=== PATIENT | female | born 1950 | race Caucasian/White ===

== ENCOUNTER → 2021-06-24 | Outpatient (CLI) | payer OTHER | LOC: KOH-I 13:45 | DX: R22.1 Localized swelling, mass and lump, neck (principal); M27.8 Other specified diseases of jaws | CPT/HCPCS: 76536 ==

== ENCOUNTER → 2021-09-04 | Outpatient (CLI) | payer OTHER | LOC: US 08:58 | DX: D37.030 Neoplasm of uncertain behavior of the parotid salivary glands (principal) ==

== ENCOUNTER → 2022-01-02 | Outpatient (CLI) | payer OTHER | LOC: KOH-I 13:39 | DX: R41.0 Disorientation, unspecified (principal) | CPT/HCPCS: 70450 ==

== ENCOUNTER → 2022-02-09 | Outpatient (CLI) | payer OTHER | LOC: KOH-I 02-04 11:30 | DX: D11.0 Benign neoplasm of parotid gland (principal) | CPT/HCPCS: 76536 ==

== ENCOUNTER → 2022-07-02 | Outpatient (CLI) | payer OTHER | LOC: HEART 5 14:57 | DX: R06.02 Shortness of breath (principal); R93.89 Abnormal findings on diagnostic imaging of other specified body structures; R94.2 Abnormal results of pulmonary function studies | CPT/HCPCS: 94060; 94729 ==